=== PATIENT | male | born 1990 | race Caucasian/White ===

== ENCOUNTER 2018-05-08 21:27 | Emergency (ER) | payer OTHER ==
[~2018-05-08] VITALS: Ht 172.7 cm; Wt 86.2 kg
--- OUTSIDE RECORDS SUMMARY | 2018-05-08 21:32 | XMS ---
PreManage Notification: [facility] [place] [employer] Events No recent Security Events currently on file CRITERIA MET - 6 ED Visits in 6 Months [facility] ARTIE ORDA[facility] PHONE: Unknown LEGMARY DAVIS [facility]: Unknown Donna Galarza [facility] 10/31/2016-Current PHONE: Unknown CLOVIS FRANCIS [facility] 09/10/2011-Current PHONE: Unknown [facility] Other 09/10/2011-[facility]) PHONE: [phone] KINSEY MADRID [facility] 09/10/2011-Current PHONE: [phone] Mark has no Care Guidelines for this patient. Enrique VISIT COUNT (12 MO.) 1 Petros Miller 5 Zulema Eliznodo 1 Dara Urbanoland Mikhail 1 Enrique Mendez 1 JOEY Barber TOTAL 9 NOTE: Visits indicate total known visits. ED/UCC VISIT TRACKING (12 MO.) 05/08/2018 21:28 JOEY Botello TYPE: Emergency COMPLAINT: - SWALLOWED FB 03/16/2018 21:53 Zulema CAO TYPE: Emergency COMPLAINT: - ABD PAIN 01/02/2018 18:29 Petros Schrader [place] TYPE: Emergency DIAGNOSES: - Altered mental status, unspecified - Re-evaluation 01/02/2018 11:06 Dara LEHMAN TYPE: Emergency DIAGNOSES: - Knee Pain - Procedure and treatment not carried out due to patient leaving prior to being seen by health care provider - Withdrawal (Drug) 12/13/2017 11:35 Zulema CAO TYPE: Emergency COMPLAINT: - CLEARANCE 12/05/2017 17:05 Zulema CAO TYPE: Emergency COMPLAINT: - MEDICAL CLEARANCE 07/09/2017 03:29 Enrique PINEDA [place] TYPE: Emergency DIAGNOSES: - Convulsions - Other stimulant abuse, uncomplicated - Altered Mental Status - Other stimulant abuse, uncomplicated - Poisoning by other synthetic narcotics, accidental (unintentional), initial encounter - Poisoning by other synthetic narcotics, accidental (unintentional), initial encounter 05/30/2017 15:40 Zulema CAO TYPE: Emergency COMPLAINT: - MEDICAL CLEARANCE 05/25/2017 23:08 Zulema CAO TYPE: Emergency COMPLAINT: - LEG PAIN INPATIENT VISIT TRACKING (12 MO.) No inpatient visits to display in this time frame [email or web address]
[2018-05-08] MEDS ORDERED: CLEOCIN HCL300 MG PO (22:08)
== END 2018-05-09 01:58 | disposition home or self-care (01) ==
LOC: ED 21:27
DX: R10.31 Right lower quadrant pain (principal); F31.9 Bipolar disorder, unspecified; F41.0 Panic disorder [episodic paroxysmal anxiety]; Z86.19 Personal history of other infectious and parasitic diseases; F17.200 Nicotine dependence, unspecified, uncomplicated
CPT/HCPCS: 71045; 74018; 74177; 80053; 81001; 83690; 85025; 99284-25; Q9967